=== PATIENT | female | born 2005 | race Caucasian/White ===

== ENCOUNTER → 2024-08-05 09:56 | Outpatient (REF) | payer OTHER, SELFPAY ==
[2024-08-05 13:23] LABS: Hepatitis B Surface Antibody Negative
[2024-08-07 13:35] LABS: Quantiferon Mitogen minus NIL 7.92 IU/mL; Quantiferon NIL 0.01 IU/mL; Quantiferon Plus TB1 minus NIL 0.01 IU/mL (<=0.34); Quantiferon Plus TB2 minus NIL 0.01 IU/mL (<=0.34); Quantiferon TB Gold Plus Negative (Negative)
== END ==
LOC: OHS 09:56
PROVIDERS: ATTENDING PHYSICIAN Nurse Practitioner Family
DX: Z23 Encounter for immunization (principal)
CPT/HCPCS: 36415; 86480; 86706